=== PATIENT | male | born 1955 | race Caucasian/White ===

== ENCOUNTER 2024-12-16 10:57 | Emergency (ER) | payer MEDICARE, SELFPAY ==
--- NOTE | ~2024-12-16 | XR_ITS ---
XR abdomen/kub 1V 12/16/2024 12:50 Indication: Constipation Procedure: KUB Comparison: No prior studies for comparison. Findings: Bowel gas pattern nonobstructive. Moderate colonic fecal loading. There is calcification lo cated centrally in the pelvis, possibly bladder stone. There are pelvic phleboliths. There is a tawanda ter in the pelvis, possibly in the bladder. Impression: 1: Possible bladder stone. Reviewed, dictated and finalized at location A. Impression: 1: Possible bladder stone.
--- NOTE | ~2024-12-16 | CT_ITS ---
EXAMINATION: CT abdomen pelvis wo con DATE: 12/16/2024 13:37 INDICATION: Urinary retention. Possible bladder stones. TECHNIQUE: Computed tomography (CT) of the abdomen and pelvis was performed without intravenous contr ast. Automated exposure control and iterative reconstruction technique were employed. The dose-length product was 526.57 mGy-cm. COMPARISON: None FINDINGS: Mild discoid atelectasis at the lingula. Heart size is normal. Small amount of atherosclerotic davison ry artery calcific lesion. No pericardial or pleural effusion. Couple low-attenuation hepatic cysts t he largest measuring 2.2 cm in the right hepatic lobe. Spleen, pancreas and bilateral adrenal glands are normal. 5.8 cm exophytic cyst at the upper pole of the left kidney. 1-2 mm stone at an upper pole calyx of the right kidney. Mild bilateral hydroureteronephrosis extending to the bladder without rené dent obstructing stone or mass. Small amount of gas and a Colvin catheter within the partially decompr essed bladder. 1.2 cm calcified bladder stone. There is curvilinear calcification at the margin of 3 additional lesions in the partially decompressed bladder. It is unclear where this is at the peripher y of a lobular thickening of the bladder wall or lower density intraluminal nodules. There are some i nflammatory stranding peripheral to the bladder which could be seen with cystitis. Prostatomegaly. Sm all fat-containing indirect left inguinal hernia and small to moderate-sized fat-containing bilateral indirect inguinal hernias. No free intraperitoneal gas or fluid. No pathologically enlarged abdomina l or pelvic lymphadenopathy. Mild bilateral hip osteoarthritis. IMPRESSION: 1. Mild bilateral hydroureteronephrosis which extends to the partially decompressed bladder without e vident obstructing stones or masses along the ureters. There is a bladder stone however there are als o 3 incomplete curvilinear calcifications within the bladder which represent peripheral calcification of nodular wall thickening concerning for malignancy and potentially explaining the mild bilateral h ydronephrosis despite the partial decompression of the bladder. If this has not been previously evalu ated with recommend cystoscopy for further evaluation. 2. Bilateral fat-containing inguinal hernias. Reviewed, dictated and finalized at location A. IMPRESSION: 1. Mild bilateral hydroureteronephrosis which extends to the partially decompre ssed bladder without evident obstructing stones or masses along the ureters. Th ere is a bladder stone however there are also 3 incomplete curvilinear calcific ations within the bladder which represent peripheral calcification of nodular w all thickening concerning for malignancy and potentially explaining the mild bi lateral hydronephrosis despite the partial decompression of the bladder. If thi s has not been previously evaluated with recommend cystoscopy for further evalu ation. 2. Bilateral fat-containing inguinal hernias.
[2024-12-16 11:13] VITALS: BP 153/71; PULSE 70; RESP 16; TEMP 36.4; O2SAT 100
[2024-12-16 11:32] VITALS: BP 146/89; PULSE 71; RESP 17; O2SAT 96
--- OUTSIDE RECORDS SUMMARY | 2024-12-16 12:20 | XMS_ITS | Clinical Summary ---
Author Organization [facility] at [facility] Office [facility] Address [address] [place] [address] Care Team Providers Care Sack Lifter Name Role Phone Garcia Prince MD Unavailable [phone] Piper Henson MD Primary Care Provider + [phone] Allergies No known active allergies Medications finasteride (PROSCAR) 5 mg tablet TK 1 T PO D 3 9 Active albuterol HFA (PROVENTIL HFA,VENTOLIN HFA,PROAIR HFA) 90 mcg/actuation inhalerIndication s:Moderate persistent asthma without complication Inhale 2 puffs every 4 (four) hours as needed for wheezing 1 each 3 1 Active Active Problems Problem Noted Date Diagnosed Date Encounter for general health examination 019 Assessment & Plan (02/10/2020 2:08 PM CDT): Wear sunscreen with SPF over 50 while outdoors. Wear sun protective head wear and clothing if planning to stay outdoors exposed to the direct sunlight for extended hours. Wear seatbelts while in a vehicle. Do not TEXT and DRIVE Do not DRINK and DRIVE. Drink responsibly Follow a heart healthy diet and lifestyle. Consume 5-7 servings of fruits and vegetables a day.. Such as the Mediterranean Diet. Maintain/attain normal body weight. Exercise regularly, minimum 20 mins 3 days a week to reduce cardiovascular healthy. Maintain good sleep schedule and sleep habits I recommend that all patients follow a diet that is high in fruits and vegetables and low in processed foods such as sugar and foods that are made with white flour. I recommend using beneficial fats such as olive oil, nuts, seeds and berries and avoiding saturated animal fats. Please stay physically active to the extent that you are physically able to. Test results: if you have not received communication about test results within 7 days of the test being performed, please contact the office. I strongly encourage myChart sign ups. It can facilitate communication flow. Please contact the office for instructions on signing up. Consider getting Shingrix (shingles vaccine). This is a 2-shot series with each injection given 2-6 months apart. You can obtain the vaccine at most major pharmacies without a prescription Assessment & Plan (02/01/2019 8:31 AM CDT): Wear sunscreen while outdoors. Wear seatbelts while in a vehicle. Do not text and drive. Follow a heart healthy diet and lifestyle. Consume 5-7 servings of fruits and vegetables a day. Maintain/attain normal body weight. Maintain good sleep schedule and sleep habits. I recommend that all patients follow a diet that is high in fruits and vegetables and low in processed foods such as sugar and foods that are made with white flour. I recommend using beneficial fats such as olive oil, nuts, seeds and berries and avoiding saturated animal fats. Please stay physically active to the extent that you are able. Test results: if you have not received communication about test results within 7 days of the test being performed, please contact the office. Consider getting Shingrix (shingles vaccine). This is a 2-shot series with each injection given 2-6 months apart. You can obtain the vaccine at most major pharmacies without a prescription BMI 29.0-29.9,adult 02/01/2019 Assessment & Plan (02/10/2020 2:17 PM CDT): Work on attempts to lose weight about 2 lbs a month. Join a wt loss program if necessary. Try to reach for BMI under 26. Exercise regularly, Limit carbs and sugars in diet. Control portion intake. Consume 6-8 8oz glasses of water daily. Assessment & Plan (02/01/2019 11:16 AM CDT): Patient has lost about 9 lb since last office visit. Continue current weight loss plan Status post prostatectomy 02/03/2016 Overview (02/10/2020): BPH Prostatectomy in 2016 Dr Prince On finasteride PSA levels annually Assessment & Plan (02/10/2020 2:15 PM CDT): Under care of Dr Garcia Prince Cont under care of urologist Assessment & Plan (02/01/2019 8:32 AM CDT): Cont care under urology Moderate persistent asthma without complication 12/27/2015 Assessment & Plan (02/10/2021 12:06 PM CDT): Cont advair Recommend taking it daily on reg basis Patient requesting refill Rescue inhaler prn Assessment & Plan (02/10/2020 7:06 PM CDT): Use the advair as prescribed. Patient explained this is the reason the and the purpose of Advair therapy to decrease inflammation is lungs of further deterioration of his lung health. Patient expressed understanding. Advised patient to perform Lung exercises To exercise on a regular basis To work on weight loss Write letter, in his best interest due to medical condition to delinquency prevention social worker if the option is available to him Assessment & Plan (02/01/2019 10:54 AM CDT): Cont medication - only uses Advair 1-2 times a week. Exercise lungs. Flu vaccine yrly recommended. Avoid triggers. Keep rescue inhaler nearby to use prn wheezing, cough or sob. If need for rescue inhaler escalates, call for recommendations. Worsening sob or wheezing, get to ER. Surgical History Surgery Date Site/Laterality Comments APPENDECTOMY COLONOSCOPY PROSTATECTOMY 05/15/2015 - 05/14/2016 Dr Prince Medical History Medical History Date Comments Hypertension Elevated PSA Asthma Family History Medical History Relation Name Comments accidental Father found in h is car passed out after drinking fall Mother complication of fall Relation Name Status Comments Father Mother Social History Tobacco Use Types Packs/Day Years Used Date Smoking Tobacco: Never Smokeless Tobacco: Never Alcohol Use Standard Drinks/Week Comments Not Currently 0 (1 standard drink = 0.6 oz pur e alcohol) PHQ-2 Answer Date Recorded PHQ-2 Total Score 0 02/10/2021 Personal Safety Answer Date Recorded Getting School Help Needed Not on file 07/14 Sex and Gender Information Value Date Recorded Sex Assigned at Not on file 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 Gender Identity Not on file Sexual Orientation Not on file 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 Not on file Not on file Obstetrics History Last Filed Vital Signs Vital Sign Reading Time Taken Comments Blood Pressure 122/72 02/10/2021 11:17 AM CDT Pulse 72 02/10/2021 11:17 AM CDT Temperature 36.7 C (98 F) 02/10/2021 11:17 AM CDT Respiratory Rate - - Oxygen Saturation 98% 02/10/2021 11: 17 AM CDT Inhaled Oxygen Concentration - - Weight 103.6 kg (228 lb 6.4 oz) 021 11:17 AM CDT Height 185.4 cm (6' 1) 02/10/2021 11:1 7 AM CDT Body Mass Index 30.13 02/10/2021 11:17 AM CDT Plan of Treatment Not on file Insurance Care Teams Sack Lifter Relationship Specialty Start Date End Date Piper Henson MD [address] [place] [id number] PCP - General Internal Medicine 02/10/21 Garcia Prince MD Consulting Physician Urology 02/01/19
--- OUTSIDE RECORDS SUMMARY | 2024-12-16 12:20 | XMS_ITS | Referral Summary ---
Author Organization [facility] Office Center Address [address] [place] [address] Care Team Providers Care Inspector Raw Quartz Name Role Phone Garcia Prince MD Unavailable [phone] Piper Henson MD Primary Care Provider + [phone] Allergies No known active allergies Medications finasteride [...] best interest due to medical condition to cargo station worker if the option is available to him Assessment & Plan (02/01/2019 10:54 AM CDT): Cont medication - only uses Advair 1-2 times a week. Exercise lungs. Flu vaccine yrly recommended. Avoid triggers. Keep rescue inhaler nearby to use prn wheezing, cough or sob. If need for rescue inhaler escalates, call for recommendations. Worsening sob or wheezing, get to ER. 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
--- OUTSIDE RECORDS SUMMARY | 2024-12-16 12:20 | XMS_ITS | Clinical Summary ---
Author Organization [facility] Address [address] [place] [address] Phone Care Team Providers Care Cadastral Surveyor Name Role Phone Pat Rodriguez MD Primary Care Provide r Juaquin Hunter MD Unavailable Allergies No known active allergies Medications No known medications Active Problems Problem Noted Date Diagnosed Date Asthma 07/13/2022 Social History Tobacco Use Types Packs/Day Years Used Date Smoking Tobacco: Never Smokeless Tobacco: Never Tobacco Cessation:Counseling Given: Yes Alcohol Use Standard Drinks/Week Comments Never 0 (1 standard drink = 0.6 oz pur e alcohol) [facility] Utilities Answer Date Recorded In the past 12 months has e electric, gas, oil, or water company threatened to shut off services in your home? No 03/28/2024 Social Connection and Isolation Panel Answer Date Recorded In a typical week, how many times do you talk on the phone with family, friends, or neighbors? More than three times a week 03/28/2024 How often do you get togethe r with friends or relatives? More than three times a week 03/28/2024 How often do you attend chur ch or synagogue services? More than 4 times per year 03/28/2024 Do you belong to any clubs o r organizations such as spiritism groups, unions, fraternal or athletic groups, or school groups? Yes 03/28/2024 How often do you attend meet ings of the clubs or organizations you belong to? More than 4 times per year 03/28/2024 Are you , , di vorced, , never , or living with a partner? 03/28/2024 AUDIT-C Answer Date Recorded Q1: How often do you have a drink containing alcohol? Never 03/28/2024 Q2: How many drinks containi ng alcohol do you have on a typical day when you are drinking? Patient does not drink Q3: How often do you have si x or more drinks on one occasion? Never 03/28/2024 Overall Financial Resource Strain (CARDIA) Answe r Date Recorded How hard is it for you to pa y for the very basics like food, housing, medical care, and heating? Not hard at all 03/28/2024 [facility] of Occupat ional Health - Occupational Stress Questionnaire Answer Date Recorded Do you feel stress - tense, restless, nervous, or anxious, or unable to sleep at night because your mind is troubled all the time - these days? Not at all 03/28/2024 Exercise Vital Sign Answer Date Recorde d On average, how many days pe r week do you engage in moderate to strenuous exercise (like a brisk walk)? 0 days 03/28/2024 On average, how many minutes do you engage in exercise at this level? 0 min 03/28/2024 Hunger Vital Sign Answer Date Recorded Within the past 12 months, y ou worried that your food would run out before you got the money to buy more. Never true 03/28/20 24 Within the past 12 months, t he food you bought just didn't last and you didn't have money to get more. Never true 03/28/2024 PRAPARE - Transportation Answer Date Re corded In the past 12 months, has l ack of transportation kept you from medical appointments or from getting medications? No 03/15 In the past 12 months, has l ack of transportation kept you from meetings, work, or from getting things needed for daily living? No 03/28/2024 Housing Stability Vital Sign Answer Carlos Eduardo e Recorded In the last 12 months, was t here a time when you were not able to pay the mortgage or rent on time? No 03/28/2024 In the past 12 months, how m any times have you moved where you were living? 0 03/28/2024 At any time in the past 12 m [facility], were you homeless or living in a senior living (including now)? No 03/28/2024 Education Answer Date Recorded What is the highest level of school you have completed or the highest degree you have received? 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 file Not on file Not on fi le Last Filed Vital Signs Vital Sign Reading Time Taken Comments Blood Pressure 142/80 03/29/2024 8:43 AM DUSTLESS OPERATOR Pulse 72 03/29/2024 8:43 AM DUSTLESS OPERATOR Temperature 36.7 C (98 F) 03/29/2024 8:43 AM DUSTLESS OPERATOR Respiratory Rate 20 03/29/2024 8:43 AM DUSTLESS OPERATOR Oxygen Saturation 98% 03/29/2024 8:43 AM DUSTLESS OPERATOR Inhaled Oxygen Concentration - - Weight 99.3 kg (219 lb) 03/29/2024 8:43 AM DUSTLESS OPERATOR Height 185.4 cm (6' 1) 03/29/2024 8:43 AM DUSTLESS OPERATOR Body Mass Index 28.89 03/29/2024 8:43 AM DUSTLESS OPERATOR Plan of Treatment Health Maintenance Due Date Last Done Comments Hepatitis C Virus (HCV) Screening 1955 TdaP Immunization 1955 Pneumococcal Immunization (5 0+ years) (1 of 2 - PCV) 1976 Cologuard 2002 Colonoscopy 2002 Colorectal Cancer Screening 2002 Immunochemical Fecal Occult Blood 2002 Zoster Immunization (1 of 2) 2007 Respiratory Syncytial Virus (RSV) Immunization (Adult) (1 - Risk 60-74 years 1-dose series) 2017 SARS-COV-2 Immunization ( season) 2024 05/06/2021, 08/22/2020, 08/01/2020 Influenza Immunization (#1) 2025 Hepatitis B Immunization Aged Out No longer eligible based on patient's age to complete this topic Human Papillomavirus (HPV) Immunization Aged Out No longer eligible b ased on patient's age to complete this topic Meningococcal Immunization (ACWY) Aged Out No longer eligible b ased on patient's age to complete this topic Rotavirus Immunization Aged Out No lo nger eligible based on patient's age to complete this topic Insurance MEDICARE C [employer] Care Teams Cadastral Surveyor Relationship Specialty Start Date End Date Pat Rodriguez MD [address] [facility] [address] [place] [address] PCP - General Family Medicine 06/30/22 Juaquin Hunter MD [address] [facility] [address] [place] [address] Consulting Physician General Surgery 05/22/23
--- OUTSIDE RECORDS SUMMARY | 2024-12-16 12:20 | XMS_ITS | Encounter Summary ---
Author Organization [facility] Care Team Providers Care Processing Technologist Name Role Phone Piper Henson MD Primary Care Provider [phone] Garcia Prince MD Unavailable [phone] Jordi Aleman Primary Care Provider [phone] Piper Henson MD Primary Care Provider + [phone] Encounter Details Date Type Department Care Team (Latest Contact Info) Description 01/09/2015 Orders Only [facility]IN[facility] ProviderDale MD [address] [place] [id number] Social History Tobacco Use Types Packs/Day Years Used Date Smoking Tobacco: Never Assessed Sex and Gender Information Value Date Recorded Sex Assigned at Not on file 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 Historical Provider Final Res ult documented in this encounter Visit Diagnoses Not on filedocumented in this encounter Care Teams Processing Technologist Relationship Specialty Start Date End Date Piper Henson MD [address] [place] [phone] PCP - General Internal Medicine 10/11/18 01/21/20 Jordi Aleman PA [address] [place] [address] [id number] PCP - General 01/22/20 02/09/21 Piper Henson MD [address] [place] [address] [id number] PCP - General Internal Medicine 02/10/21 Garcia Prince MD [address] [place] [address] [id number] Consulting Physician Urology 02/01/19 documented as of this encounter
--- OUTSIDE RECORDS SUMMARY | 2024-12-16 12:20 | XMS_ITS | Encounter Summary ---
Author Organization [facility] Care Team Providers Care Farebox Repairer Name Role Phone Piper Henson MD Primary Care Provider + [phone] Garcia Prince MD Unavailable [phone] Jordi Aleman Primary Care Provider [phone] Piper Henson MD Primary Care Provider + [phone] Encounter Details Date Type Department Care Team (Latest Contact Info) Description 10/26/2015 Orders Only [facility] CLINCONV ProviderDale MD [address] [place] [id number] Social History Tobacco Use Types Packs/Day Years Used Date Smoking Tobacco: Never Assessed Sex and Gender Information Value Date Recorded Sex Assigned at Not on file 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 Historical Provider Final Res ult documented in this encounter Visit Diagnoses Not on filedocumented in this encounter Care Teams Farebox Repairer Relationship Specialty Start Date End Date Piper Henson MD [address] [place] [address] [phone] PCP - General Internal Medicine 10/11/18 01/21/20 Jordi Aleman PA [address] [place] [address] [id number] PCP - General 01/22/20 02/09/21 Piper Henson MD [address] [place] [address] [id number] PCP - General Internal Medicine 02/10/21 Garcia Prince MD [address] [place] [address] [phone] Consulting Physician Urology 02/01/19 documented as of this encounter
--- OUTSIDE RECORDS SUMMARY | 2024-12-16 12:20 | XMS_ITS | Encounter Summary ---
Author Organization [facility] Address [address] [place] [address] Care Team Providers Care Acting Manager Name Role Phone Unavailable Primary Care Provider Unavailabl e Source Comments In the event that this is information that is protected by [facility] Confidentiality of Substance User Disorder Patient Records, 42 CFR Part 2 prohibits the unauthorized disclosure of these records.[facility] Encounter Details Date Type Department Care Team (Late st Contact Info) Description 02/23/2023 Lab Requisition [place] Pathology [address] [place] [address] Trinh East, INSTRUCTIONAL MATERIALS DIRECTOR [address] [place], [place] [id number] Nodular prostate without lower urinary tract symptoms Social History Tobacco Use Types Packs/Day Years Used Date Smoking Tobacco: Never Assessed Sex and Gender Information Value Date Recorded Sex Assigned at Not on file Legal Sex Male 5:17 PM CDT Gender Identity Not on file Sexual Orientation Not on file documented as of this encounter Plan of Treatment Not on file documented as of this encounter Procedures Procedure Name Priority Date/Time Associated Diagnosis Comments [facility] VENIPUNCTURE (CDH/DCH/KH/VWH) Routine 02/23/2023 11:45 AM CDT Nodular prostate without lower urinary tract symptoms PSA, TOTAL (DIAGNOSTIC) Routine 02/23/2023 11:45 AM CDT Nodular prostate without lower urinary tract symptoms documented in this encounter Results * *[facility] Venipuncture (CD[facility]/DCH/KH/VWH/PH) (02/23/2023 11:45 AM CDT) Outreach Venipucture Performed? Yes 02/23/2023 7:01 PM CDT [facility] LAB Blood VEIN SPECIMEN / Unknown 02/23/2023 11:45 AM CDT 02/23/2023 5:17 PM CDT Trinh East NP CHEMISTRY ORDERABLES Bessie l Result Performing Organization Address [facility] Co de Phone Number [facility] [address] [place] [address] * PSA, Total (Diagnostic) (02/23/2023 11:45 AM CDT) PSA, Total 0.89 0.00 - 4.00 ng/mL LAB SEROLOGY\IMM UNOLOGY 02/24/2023 1:31 PM CDT [facility] Blood VEIN SPECIMEN / Unknown 02/23/2023 11:45 AM CDT 02/24/2023 7:40 AM CDT Narrative [facility] - 02/24/2023 1:31 PM CDT This assay was performed using Ag[employer] reagents and test kits. Values obtained with other assay methods or kits cannot be used interchangeably. Trinh East NP CHEMISTRY ORDERABLES Bessie l Result [facility] [address] [place] [address] documented in this encounter Visit Diagnoses Diagnosis Nodular prostate without lower urinary tract symptoms Nodular prostate without urinary obstruction documented in this encounter
--- OUTSIDE RECORDS SUMMARY | 2024-12-16 12:20 | XMS_ITS | Clinical Summary ---
Author Organization [facility] Address [address] [place] [address] Care Team Providers Care Book Repairer Name Role Phone Unavailable Primary Care Provider Unavailabl e Source Comments In the event that this is information that is protected by federal Confidentiality of Substance UseDisorder Patient Records, 42 CFR Part 2 prohibits the unauthorized disclosure of these records.[facility] Social History Tobacco Use Types Packs/Day Years Used Date Smoking Tobacco: Never Assessed Sex and Gender Information Value Date Recorded Sex Assigned at Not on file Legal Sex Male 5:17 PM CDT Gender Identity Not on file Sexual Orientation Not on file Plan of Treatment Not on file Insurance * Guarantor: Zackery Brand Account Type Relation to Patient Date of Phone Billing Address Health Lab Self 1955 [address] [place] [address] [facility] H[facility]
--- OUTSIDE RECORDS SUMMARY | 2024-12-16 12:20 | XMS_ITS | Encounter Summary ---
Author Organization [facility] Address [address] [place] [address] Care Team Providers Care Psychology Intern Name Role Phone Unavailable Primary Care Provider Unavailabl e Source Comments In the event that this is information that is protected by federal Confidentiality of Substance User Disorder Patient Records, 42 CFR Part 2 prohibits the unauthorized disclosure of these records.[facility] Encounter Details Date Type Department Care Team (Late st Contact Info) Description 05/30/2024 Lab Requisition [place] Pathology [address] [place] [address] Concha Lucero MD [address] [facility] [address] [place], [place] [address] Benign prostatic hyperplasia with lower urinary tract symptoms; Nodular prostate without lower urinary tract symptoms [...] Associated Diagnosis Comments [facility] VENIPUNCTURE ([facility]/D[facility]/KH/VWH) Routine 05/30/2024 9:16 AM HEAD SHIPPER Benign prostatic hyperplasia with lower urinary tract symptoms Nodular prostate without lower urinary tract symptoms PSA, TOTAL (DIAGNOSTIC) Routine 05/30/2024 9:16 AM HEAD SHIPPER Benign prostatic hyperplasia with lower urinary tract symptoms Nodular prostate without lower urinary tract symptoms documented in this encounter Results * *[facility] Venipuncture ([facility]/DCH/KH/VWH/PH) (05/30/2024 9:16 AM HEAD SHIPPER) Outreach Venipucture Performed? Yes 05/30/2024 6:02 PM HEAD SHIPPER [facility] Blood VEIN SPECIMEN / Unknown 05/30/2024 9:16 AM HEAD SHIPPER 05/30/2024 4:47 PM HEAD SHIPPER Concha Lucero MD CHEMISTRY ORDERABLES Final R esult Performing Organization Address [facility] Co de Phone Number [facility] [address] [place] [address] * (ABNORMAL) PSA, Total (Diagnostic) (05/30/2024 9:16 AM HEAD SHIPPER) PSA, Total 4.91(H) 0.00 - 4.00 ng/mL 05/31/2024 8:30 AM HEAD SHIPPER [facility] Blood VEIN SPECIMEN / Unknown 05/30/2024 9:16 AM HEAD SHIPPER 05/31/2024 7:38 AM HEAD SHIPPER Narrative [facility] - 05/31/2024 8:30 AM HEAD SHIPPER This assay was performed using [employer] reagents and test kits. Values obtained with other assay methods or kits cannot be used interchangeably. Concha Lucero MD CHEMISTRY ORDERABLES Final R esult Performing Organization Address [facility] Co de Phone Number [facility] [address] [place] [address] documented in this encounter Visit Diagnoses Diagnosis Benign prostatic hyperplasia with lower urinary tract symptoms Nodular prostate without lower urinary tract symptoms Nodular prostate without urinary obstruction documented in this encounter
--- NOTE | 2024-12-16 13:25 | ED_ITS ---
HPI - Male Genitourinary General Chief complaint: Urogenital-Male Stated complaint: constipation, urinary retention x 24 hours Time Seen by Provider: 12/16/24 11:59 History of Present Illness HPI Narrative: Patient is a 69-year-old male who presents ER for urinary retention. Unable to urinate over last 24 hours. He has had a lot of suprapubic discomfort. Reports he has chronic constipation and has bowel movement once a week but thinks that is worsened typical. Has been able to pass a few firm stools today. No nausea or vomiting. History of BPH. Related Data Allergies Allergy/AdvReac Type Severity Reaction Status Date / Time No Known Allergies Allergy Verified 12/16/24 11:15 Review of Systems Review of Systems: All systems reviewed & are unremarkable except as noted in HPI and below Constitutional: Constitutional: Reports no additional constitutional complaints Cardiovascular: Cardiovascular: Reports no additional cardiovascular complaints Respiratory: Respiratory: Reports no additional respiratory complaints Gastrointestinal: Gastrointestinal: Reports no additional gastrointestinal complaints Genitourinary: Genitourinary: Reports no additional male genitourinary complaints [facility] Past Medical History Medical History (Updated 12/16/24 @ 15:00 by Be Bynum MD) History of BPH Surgical History Surgical History (Updated 12/16/24 @ 13:27 by Be Bynum MD) History of transurethral resection of prostate Exam Narrative: GENERAL: Well-appearing, well-nourished, and in no acute distress. HEAD: Normocephalic, atraumatic. ENT: Mucous membranes moist. CHEST: Clear to auscultation. No respiratory distress. HEART: Regular rate and rhythm. Normal peripheral pulses. ABDOMEN: Soft, nontender, nondistended. EXTREMITIES: Normal range of motion. No edema. SKIN: Warm, dry, no rash. NEURO: Alert and oriented x3. PSYCH: Normal mood and affect. Course Course Emergency Course: 1 L of urine drained from the bladder and then the catheter was clamped. Patient will go to CT to evaluate for possible bladder stone that could be causing some of his symptoms. Total output 1400 mL. Patient with bladder stone. Will keep Colvin in place. Discussed other abnormalities on imaging. Reports he has recently had a prostate biopsy and cystoscopy. He will follow-up with his urologist. Vital Signs Vital signs: Vital Signs Temperature 97.5 F L 12/16/24 11:13 Pulse Rate 70 12/16/24 11:13 Respiratory Rate 16 12/16/24 11:13 Blood Pressure 153/71 H 12/16/24 11:13 Pulse Oximetry 100 12/16/24 11:13 Oxygen Delivery Room Air 12/16/24 11:13 Temperature 97.5 F L 12/16/24 11:13 Pulse Rate 71 12/16/24 11:32 Respiratory Rate 17 12/16/24 11:32 Blood Pressure 146/89 H 12/16/24 11:32 Pulse Oximetry 96 12/16/24 11:32 Oxygen Delivery Room Air 12/16/24 11:32 MDM - Male Genitourinary Lab Data Labs: Lab Results 12/16/24 Range/Units 13:29 Urine Color Yellow (Yellow) Urine Appearance Clear (Clear) Urine pH 7.0 (5.0-9.0) Ur Specific [place] 1.008 (1.001-1.035) Urine Protein 1+ H (Negative) mg/dL Urine Glucose (UA) Negative (Negative) mg/dL Urine Ketones Negative (Negative) mg/dL Ur Blood (Man) 3+ H (Negative) Urine Nitrate Negative (Negative) Urine Bilirubin Negative (Negative) Urine Urobilinogen 0.2 (<2.0) mg/dL Leukocyte Esterase Rfl Trace H (Negative) DANUTA/UL Urine RBC >100 H (0-2) /hpf Urine WBC 0-5 (0-3) /hpf Ur Squamous Epith Cells None seen (Few) /hpf Urine Bacteria None seen /hpf Urine Casts 0-2 Imaging Data Radiologist's impression: ITS Impressions Abdomen X-Ray 12/16/24 13:04 Impression: 1: Possible bladder stone. Abdomen/Pelvis CT 12/16/24 13:44 IMPRESSION: 1. Mild bilateral hydroureteronephrosis which extends to the partially decompressed bladder without evident obstructing stones or masses along the ureters. There is a bladder stone however there are also 3 incomplete curvilinear calcifications within the bladder which represent peripheral calcification of nodular wall thickening concerning for malignancy and potentially explaining the mild bilateral hydronephrosis despite the partial decompression of the bladder. If this has not been previously evaluated with recommend cystoscopy for further evaluation. 2. Bilateral fat-containing inguinal hernias. Discharge Plan Discharge Clinical Impression: Bladder stone, Acute urinary retention Patient Disposition: Home Condition: Stable Instructions: Urinary Retention in Men (ED), Bladder Stones (ED) Additional Instructions: Return to the emergency department if you develop severe abdominal pain, severe nausea and vomiting to the point where you are unable to keep down fluids, if you develop chest pain or difficulty breathing, blood in your stool, dizziness or fainting, or if you develop any other new or concerning symptoms as these could be signs of more serious medical illness. Try to stay well hydrated. Patient Language: Montserratian Follow-up/Referrals: UNKNOWN,DOCTOR [Primary Care Provider] - 1 Week
[2024-12-16 13:48] LABS: Add Urine Microscopic? YES; Appearance Urine Clear (Clear); Glucose Urine UA Negative (Negative); Leukocyte Esterase Ur Trace LEU/UL (Negative); Nitrate Urine Negative (Negative); Non Pathogenic Casts 0-2; Specific Grav Ur 1.008 (1.001-1.035)
[2024-12-16 15:32] VITALS: BP 136/72; PULSE 68; RESP 18; O2SAT 98
== END 2024-12-16 15:33 | disposition home or self-care (01) ==
PROVIDERS: Emergency Provider Emergency Medicine
DX: R33.9 Retention of urine, unspecified (principal); N21.0 Calculus in bladder
CPT/HCPCS: 51702; 74018; 74176; 81001; 99284